=== PATIENT | male | born 1960 | race Caucasian/White ===

== ENCOUNTER 2017-10-08 01:44 | Emergency (ER) | payer OTHER ==
[~2017-10-08] VITALS: Ht 180.3 cm; Wt 96.5 kg
[2017-10-08] MEDS ORDERED: FLEXERIL10 MG PO (03:34)
[2017-10-08 03:46] VITALS: BP 137/90
== END 2017-10-08 03:49 | disposition home or self-care (01) ==
LOC: EME → EDBD 01:44 → EME 03:49
DX: T14.90XA Injury, unspecified, initial encounter (principal); V89.2XXA Person injured in unspecified motor-vehicle accident, traffic, initial encounter; M25.512 Pain in left shoulder; R07.9 Chest pain, unspecified; E11.9 Type 2 diabetes mellitus without complications; Z88.5 Allergy status to narcotic agent
CPT/HCPCS: 71046; 73030; 99281; 99284